=== PATIENT | female | born 1995 | race Two or more races ===

== ENCOUNTER 2019-08-28 12:06 | Emergency (ER) | payer BC ==
[~2019-08-28] VITALS: Ht 160 cm; Wt 52.7 kg
--- NOTE | 2019-08-28 12:26 | NUR ---
PT HERE WITH C/O NAUSEA/VOMITTING SINCE AM ON 08/27/19. PT STATES 12 AND A HALF WEEKS , OB IS DR. BERMUDEZ. PT STATES SHE SAW HER OB YESTERDAY AND IS STILL NAUSEOUS AND VOMITTING, GIVEN A PRESCRIPTION FOR ZOFRAN AT OB OFFICE, NO RELIEF. PT AAO X 4, NAD, ROOM AIR, DRESSED IN GOWN AND ATTACHED TO MONITOR. PT DENIES ANY OTHER SYMPTOMS BESIDES NAUSEA/VOMITTING. CALL LIGHT WITHIN REACH AND SIDERAIL X [address]
--- NOTE | 2019-08-28 12:35 | NUR ---
AT BEDSIDE FOR EXAM.
--- NOTE | 2019-08-28 12:48 | NUR ---
PIV ESTABLISHED BY THIS RN, LABS DRAWN. IV FLUIDS STARTED.
[2019-08-28] MEDS ORDERED: ONDANSETRON 2MG/ML, 2ML ONE ×2 (12:50→15:51)
--- NOTE | 2019-08-28 12:51 | NUR ---
PT MEDICATED PER ORDERS.
[2019-08-28 12:57] LABS: BASOPHILS # (AUTO) 0.03 x10^3/uL (0-0.1); BASOPHILS % (AUTO) 0 % (0-1); EOSINOPHILS # (AUTO) 0.04 x10^3/uL (0-0.4); EOSINOPHILS % (AUTO) 0 % (1-7); LYMPHOCYTES # (AUTO) 2.79 x10^3/uL (1-3.4); LYMPHOCYTES % (AUTO) 26 % (22-44); MD NO; MEAN CORPUSCULAR HGB CONC 34.5 g/dL (32.4-35.8); MEAN CORPUSCULAR VOLUME 95.7 fL (80-100); MEAN PLATELET VOLUME 8.3 fL (7.4-10.4); MONOCYTES # (AUTO) 0.45 x10^3/uL (0.2-0.8); MONOCYTES % (AUTO) 4 % (2-9); NEUTROPHILS # (AUTO) 7.42 x10^3/uL (1.8-6.8); NEUTROPHILS % (AUTO) 69 % (42-75); PLATELET COUNT 260 x10^3/uL (130-400); RED BLOOD COUNT 4.33 x10^6/uL (3.82-5.3); RED CELL DISTRIBUTION WIDTH 13.2 % (9.6-15.2)
[2019-08-28] MEDS ORDERED: ONDANSETRON 2MG/ML, 2ML IVPush ONE ×2 (13:00→16:00)
[2019-08-28] MEDS ORDERED: SODIUM CHLORIDE 0.9% 1,000ML IVBOLUS ONE (13:00)
[2019-08-28 13:10] LABS: ANION GAP 9 mmol/L (5-15); CALCIUM 8.7 mg/dL (8.5-10.1); CHLORIDE 109 mmol/L (98-107); CREATININE 0.63 mg/dL (0.55-1.02)
[2019-08-28] MEDS ORDERED: POTASSIUM CHLORIDE 20 MEQ PACKET PO ONE (14:00)
[2019-08-28] MEDS ORDERED: POTASSIUM CHLORIDE 20 MEQ PACKET ONE (14:07)
--- NOTE | 2019-08-28 14:17 | NUR ---
PT MEDICATED PER ORDERS.
--- NOTE | 2019-08-28 15:18 | NUR ---
PT AMBULATORY TO RESTROOM WITH STEADY GAIT.
--- NOTE | 2019-08-28 15:47 | NUR ---
PT CALLED THIS RN TO BEDSIDE, PT STATES SHE VOMITTED AGAIN. THIS RN TO NOTIFY .
[2019-08-28 15:48] VITALS: BP 112/61
--- NOTE | 2019-08-28 15:53 | NUR ---
MD NOTIFIED THAT PT IS VOMITTING, NEW ORDER RECEIVED AND IMPLEMENTED. PLAN FOR DISCHARGE STILL.
--- NOTE | 2019-08-28 16:16 | NUR ---
Patient/Caregiver given discharge instructions and they have confirmed that they understand the instructions. Patient ambulatory with steady gait.
== END 2019-08-28 16:26 | disposition home or self-care (01) ==
LOC: ED 14:28
DX: O99.280 Endocrine, nutritional and metabolic diseases complicating pregnancy, unspecified trimester (principal); O21.9 Vomiting of pregnancy, unspecified; E86.0 Dehydration; E87.6 Hypokalemia; Z3A.00 Weeks of gestation of pregnancy not specified
CPT/HCPCS: 36415; 80048; 85025; 96361; 96374; 96375; 99283; J2405; J7030